=== PATIENT | female | born 1995 | race Two or more races ===

== ENCOUNTER 2024-06-23 09:27 | Observation (INO) | payer MEDICAID ==
[2024-06-23 10:17] LABS: Basophils # (auto) 0 10 ^3/uL (0-0.2); Basophils % (auto) 0.2 % (0.0-2.0); Eosinophils # (auto) 0 10 ^3/uL (0-0.8); Eosinophils % (auto) 0.4 % (0.0-7.0); Hemoglobin 9.7 g/dL (12.2-16.2); Lymphocytes % (auto) 18.2 % (10.0-50.0); Mean Corpuscular Hemoglobin 22.8 pg (28.0-32.0); Mean Corpuscular Hgb Conc. 32.2 g/dL (32.0-36.0); Monocytes # (auto) 0.5 10 ^3/uL (0-1.3); Monocytes % (auto) 4.3 % (0.0-12.0); Neutrophils # (auto) 8.3 10 ^3/uL (1.6-8.6); Neutrophils % (auto) 76.9 % (37.0-80.0); Nucleated Red Blood Cells % 0.1 %; Platelet Count (auto) 305 10^3/uL (140-450); Red Blood Cells 4.23 10^6/uL (4.0-5.20); Red Cell Distribution Width 17.7 % (11.8-14.3); White Blood Cell 10.8 10^3/uL (4.4-10.8)
[2024-06-23 10:35] LABS: Alanine Aminotransferase 17 U/L (7-40); Alkaline Phosphatase 98 U/L (46-116); Anion Gap 10 (5-15); BUN/Creatinine Ratio 12.5 (10.0-20.0); Calcium 9.3 mg/dL (8.7-10.4); Carbon Dioxide 21 mmol/L (20-31); Chloride 105 mmol/L (98-107); Glucose 75 mg/dL (74-106); Potassium 3.9 mmol/L (3.5-5.1); Sodium 136 mmol/L (136-145); Total Protein 7.3 g/dL (5.7-8.2); Uric Acid 4.1 mg/dL (3.1-7.8)
[2024-06-23 10:36] LABS: Albumin 4.3 g/dL (3.2-4.8); Bilirubin, Total 0.4 mg/dL (0.2-1.0); INR 0.92 (0.9-1.15); Partial Thromboplastin Time 23.1 SEC (24.5-34.5); Prothrombin Time 9.8 sec (9.3-11.8)
[2024-06-23 10:43] LABS: Aspartate Aminotransferase 13 U/L (13-40); Blood Urea Nitrogen 6 mg/dL (9-23)
[2024-06-23 11:26] LABS: Urine Blood Negative /uL (Negative); Urine Clarity Turbid (Clear); Urine Color Light-Orange (Yellow); Urine Mucus FEW (None Seen); Urine Protein, UAD TRACE (Negative); Urine Specific Gravity 1.027 (1.001-1.035); Urine Squamous Epithelial Cell FEW /hpf (<5); Urine Urobilinogen Normal (Negative); Urine WBC 41 /HPF (0-5)
[2024-06-23 11:27] LABS: Urine Bacteria MANY /hpf (None Seen)
[2024-06-23 11:51] LABS: Amphetamine Screen, Urine Neg (NEGATIVE); Creatinine, Urine 177.85 mg/dL (30.0-125.0); Protein, Urine 29.2 mg/dL (1-14); Urine Protein/Creatinine Ratio 0.16
[2024-06-23 11:53] LABS: Barbiturate Scree,Urine Neg (NEGATIVE); Benzodiazephine Screen, Urine Neg (NEGATIVE); Cannabinoid Screen, Urine Neg (NEGATIVE); Cocaine Screen, Urine Neg (NEGATIVE); Opiate Scree,Urine Neg (NEGATIVE); Phencyclidine Screen, Urine Neg (NEGATIVE)
--- NOTE | 2024-06-23 12:53 | DVHDS2 ---
Physician Discharge Progress N Final Diagnosis: pih ruled out Operations or Procedures: Operations or Procedures nst,edward Commentary: Commentary seen by jc Condition on Discharge: Good Disposition: Home Discharge Instructions: Diet: Regular Activity: No Restrictions, As Tolerated Medications: na Follow Up Care: Specialist: 4d Discharge Statement: "Patient was advised to return to the ER or call 911 if any headaches, dizziness, shortness of breath, chest pain, abdominal pain, bleeding, fevers, or worsening of medical condition. Patient was counseled about treatment plan, medications, possible side effects, patientverbalized understanding. All questions were answered to the best of my ability. This discharge took greater then 30 minutes in planning, reviewing documentation, counseling the patient, and discussing with other team members." Visit Coding OBGYN Date of Service: Jun 23, 2024 Billing Provider: ALICIA KAISER DO PLUGGER MAN Common Visit Codes: [id number] INP/OBS CARE (HIGH), [id number] INP/OBS CARE(HIGH) PLUGGER MAN Consultation Codes: [id number] CONSULT <40MIN PLUGGER MAN Procedure Codes: 19120-91- NON-STRESS TEST ALICIA KAISER DO Jun 23, 2024 12:53
== END 2024-06-23 12:06 | disposition home or self-care (01) ==
LOC: LDRP 09:27 → UNDOADMOB 09:27 → LDRP 09:38 → UNDODISOB 12:06
PROVIDERS: ADMIT Obstetrics & Gynecology; ATTEND Obstetrics & Gynecology
DX: Z36.89 Encounter for other specified antenatal screening (principal); Z79.899 Other long term (current) drug therapy; Z3A.28 28 weeks gestation of pregnancy; Z86.2 Personal history of diseases of the blood and blood-forming organs and certain disorders involving the immune mechanism
CPT/HCPCS: 36415; 59025; 80053; 80307; 81001; 81002; 82570; 83615; 84156; 84550; 85025; 85610; 85730; 94760; G0378

== ENCOUNTER → 2024-08-18 | Outpatient (CLI) | payer MEDICAID ==
[2024-08-18 10:23] LABS: Basophils # (auto) 0 10 ^3/uL (0-0.2); Basophils % (auto) 0.1 % (0.0-2.0); Eosinophils # (auto) 0.1 10 ^3/uL (0-0.8); Eosinophils % (auto) 0.5 % (0.0-7.0); Monocytes # (auto) 0.4 10 ^3/uL (0-1.3); Neutrophils # (auto) 8.5 10 ^3/uL (1.6-8.6)
[2024-08-18 10:24] LABS: Hematocrit 32.5 % (36.0-46.0); Hemoglobin 10.8 g/dL (12.2-16.2); Mean Corpuscular Hemoglobin 24.3 pg (28.0-32.0); Mean Corpuscular Hgb Conc. 33.2 g/dL (32.0-36.0); Mean Corpuscular Volume 73.3 fL (80.0-100.0); Monocytes % (auto) 3.6 % (0.0-12.0); Neutrophils % (auto) 77.8 % (37.0-80.0); Nucleated Red Blood Cells % 0.1 %; Platelet Count (auto) 263 10^3/uL (140-450); Red Blood Cells 4.44 10^6/uL (4.0-5.20); Red Cell Distribution Width 20.3 % (11.8-14.3)
[2024-08-20 00:07] LABS: Chlamydia Trachomatis, NAA Negative (Negative); Neisseria gonorrhoeae, NAA Negative (Negative)
== END | disposition home or self-care (01) ==
LOC: LAB 09:59
PROVIDERS: ATTEND Obstetrics & Gynecology
DX: Z34.80 Encounter for supervision of other normal pregnancy, unspecified trimester (principal); Z3A.00 Weeks of gestation of pregnancy not specified
CPT/HCPCS: 36415; 85025; 86780

== ENCOUNTER 2024-09-02 07:24 | Observation (INO) | payer MEDICAID ==
[2024-09-03] MEDS ORDERED: PREN-129 OR (20:46)
--- NOTE | 2024-09-03 21:53 | DVH ---
BIOPHYSICAL PROFILE HISTORY: PIH TECHNIQUE: Multiple transabdominal real-time grayscale sonographic images through the gravid uterus of the fetus with duplex Doppler color flow and M-mode spectral analysis FINDINGS: BIOPHYSICAL PROFILE: breathing score: 2 movement score: 2 tone score: 2 Quantitative NEGRA score: 2 (NEGRA: 11.58 Cm.) Total score: 8 The cervix is not well-visualized Single live fetus in cephalic presentation. heart rate 131 beats per minute. Grade 3 fundal placenta without previa or abruption Single nuchal cord is visualized. IMPRESSION: Biophysical profile score: 8 Single nuchal cord is visualized.
--- NOTE | 2024-09-04 03:04 | DVHDS2 ---
Physician Discharge Progress N Final Diagnosis: 39 WKS PIH RULED OUT Operations or Procedures: Operations or Procedures NST REACTIVE REVIEWED,SONO Condition on Discharge: Good Disposition: Home Discharge Instructions: Diet: See Comment Diet comment: LOW SALT INTAKE Activity: No Restrictions, As Tolerated Follow Up/Referral: KEEP CURRENT APPOINTMENT WITH DR KAISER ON 09/07. RETURN TO BIRTHPLACE FOR BLOOD PRESSURE CHECKS AND FOR MONITORING. Medications: continue taking vitamins. Follow Up Care: Specialist: 2D Discharge Statement: "Patient was advised to return to the ER or call 911 if any headaches, dizziness, shortness of breath, chest pain, abdominal pain, bleeding, fevers, or worsening of medical condition. Patient was counseled about treatment plan, medications, possible side effects, patientverbalized understanding. All questions were answered to the best of my ability. This discharge took greater then 30 minutes in planning, reviewing do cumentation, counseling the patient, and discussing with other team members." Visit Coding OBGYN Date of Service: September 03, 2024 Billing Provider: ALICIA KAISER DO METAL FORGER'S ASSISTANT Common Visit Codes: [id number] OBS CARE (HIGH) METAL FORGER'S ASSISTANT Procedure Codes: 75856-52- NON-STRESS TEST ALICIA KAISER DO September 04, 2024 03:04
== END 2024-09-03 21:57 | disposition home or self-care (01) ==
LOC: LDRP 09-03 20:01
PROVIDERS: ADMIT Obstetrics & Gynecology; ATTEND Obstetrics & Gynecology
DX: O69.81X0 Labor and delivery complicated by cord around neck, without compression, not applicable or unspecified (principal); O13.3 Gestational [pregnancy-induced] hypertension without significant proteinuria, third trimester; Z98.890 Other specified postprocedural states; Z79.899 Other long term (current) drug therapy; Z3A.39 39 weeks gestation of pregnancy
CPT/HCPCS: 59025; 76819; 81002; 94760; G0378

== ENCOUNTER 2024-09-05 15:55 | Inpatient (IN) | payer MEDICAID ==
[~2024-09-05] VITALS: Ht 162.6 cm; Wt 97.5 kg
[~2024-09-05 15:55] MED LIST: PREN-129 OR
[2024-09-05] MEDS ORDERED: TRANEXAMIC ACID 1,000 mg/10ml INJ VIAL IV ONE (15:56)
[2024-09-05 17:22] LABS: Urine Bacteria FEW /hpf (None Seen); Urine Blood TRACE /uL (Negative); Urine Clarity Turbid (Clear); Urine Color Yellow (Yellow); Urine Mucus FEW (None Seen); Urine Protein, UAD TRACE (Negative); Urine Squamous Epithelial Cell FEW /hpf (<5); Urine Urobilinogen Normal (Negative); Urine WBC 4 /HPF (0-5)
[2024-09-05 17:43] LABS: Vaginal Bacteria Few; Vaginal Clue Cells None Seen; Vaginal Epithelial Cells Few; Vaginal Trichomonas Not Present
[2024-09-05 17:54] LABS: Fern Testing Positive
--- NOTE | 2024-09-05 18:09 | DVHHP2 ---
OB CC & HPI Date Date of Admission: September 05, 2024 Patient Identification: : 2 Para: 0 EDC: September 09, 2024 EGA: 39.3 Chief Complaints: Reason for admission: rupture of membranes History of Present Complaints Term IUP 39.3 wk, dated by 21 wk US (Late entry to care) - c/o leaking clear fluid since yesterday - BOTH Fern test and amnisure tests POSITIVE for PROM - GBS negative Minimal contractions, not in labor has been uncomplicated other than maternal obesity, and mild anemia Past Medical History Cardiac: No pertinent Hx Pulmonary: No pertinent Hx Central Nervous System: No pertinent Hx GI: No pertinent Hx Hemotology/Oncology: Anemia NOS Hepatobiliary: No pertinent Hx Psychiatric: No pertinent Hx Musculoskeletal: No pertinent Hx Rheumotologic: No pertinent Hx Infectious Disease: No peritnent Hx ENT: No pertinent Hx Renal/: No pertinent Hx Endocrine: No pertinent Hx Dermatology: No pertinent Hx Past Surgical History: No pertinent Hx OB History OB History Care: Good Care Ultrasounds: Normal mid trimester US Obstetrical Complications: None Medical Complications: None Home Meds Reported Medications Vit W/ Ferrous Fumara () Tab, 1 OR, TAB 09/03/24 Family & Social History Family/Social History Past Family/Social History: Negative FHx Blood Type: O+ Rubella: immune RPR/VDRL: Negative GBS Status: Negative HBsAG: Negative Review of Systems Constitutional: No symptom reported Ears, Nose, & Throat: No symptom reported Eyes: No symptom reported Pulmonary/Respiratory: No symptom reported Cardiovascular: No symptom reported Gastrointestinal: No symptom reported Genitourinary: No symptom reported Musculoskeletal: No symptom reported Skin: No symptom reported Psychiatric: No symptom reported Endocrine: No symptom reported Hemotologic/Lymphatic: No symptom reported OB Admission Exam Physical Exam HEENT: NCAT Heart: Rhythm Normal Lungs: Clear Abdomen: Gravid Extremities: Normal Reflexes: Normal Pelvic Exam: RN exam Cervical Dilatation: 1cm Effacement: Other (20) Station: -3 Membranes: Ruptured Amniotic Fluid: Clear Heart Rate: 130's Accelerations: Accelerations Present Decelerations: No Decelerations Short Term Variability: Present Clinical Appeals Specialist Variability: Average (6-25) Contractions on Admission: >10 Minutes Apart Intensity: Mild OB Plan Plan Admitting Diagnosis: 28y G2Po, Term IUP 39.3 wk with PROM GBS negative Categ 1 FHR tracing Morbid Obesity BMI= 37 mild Anemia Plan: Induction (EFW 8lb 1oz by US) Induction Methd: Misoprostol protocol Other Plan: Admit for indicated delivery Induction w/ Cytotec PO per protocol Informed consent obtained for treatment and delivery Visit Coding OBGYN Date of Service: September 05, 2024 Billing Provider: ALESSIO MCKNIGHT DO LABEL DRIER Common Visit Codes: [id number] INP/OBS CARE (HIGH) ALESSIO MCKNIGHT DO September 05, 2024 18:09
[2024-09-05] MEDS ORDERED: NALBUPHINE HCL 10 MG/1ml INJECTION IM PRN (19:00)
[2024-09-05] MEDS ORDERED: LACTATED RINGER'S 1,000 ML IV SCH (19:00)
--- NOTE | 2024-09-05 19:04 | DVH ---
LIMITED OB ULTRASOUND > 14 WKS: HISTORY: lie and EFW TECHNIQUE: Multiple real-time grayscale images of the gravid uterus with duplex Doppler color flow an d M-mode spectral analysis. TRANSDUCER: Transabdominal COMPARISON: Biophysical profile 09/03/2024 FINDINGS: IUP single live fetus at 39 weeks 1 day based on composite averages of the BPD, head circumference, a bdominal circumference and femur length. Biparietal diameter is 9.6 cm, head circumference is 34.4 c m, abdominal circumference is 35.2 cm, and femur length is 7.5 cm. Estimated weight 3668 grams heart rate 134 beats per minute NEGRA 6.0 cm (previously 11.6 cm). MVP is 4.1 cm. Cervix appears unremarkable. Cephalic Presentation Right lateral placenta without previa or abruption. A nuchal cord is again seen. IMPRESSION: 1. IUP single live fetus at 39 weeks 1 day AUA corresponding to an [place] of 09/11/2024. 2. Redemonstration of a nuchal cord. 3. NEGRA has decreased from prior and is borderline low (6.0 cm). MVP is normal.
[2024-09-05 19:45] LABS: Basophils # (auto) 0 10 ^3/uL (0-0.2); Eosinophils # (auto) 0 10 ^3/uL (0-0.8); Lymphocytes # (auto) 2.1 10 ^3/uL (0.4-5.4); Mean Corpuscular Volume 73.6 fL (80.0-100.0); Monocytes # (auto) 0.6 10 ^3/uL (0-1.3)
[2024-09-05 19:46] LABS: Basophils % (auto) 0.1 % (0.0-2.0); Eosinophils % (auto) 0.3 % (0.0-7.0); Hematocrit 32.8 % (36.0-46.0); Hemoglobin 10.6 g/dL (12.2-16.2); Lymphocytes % (auto) 19.9 % (10.0-50.0); Mean Corpuscular Hemoglobin 23.9 pg (28.0-32.0); Mean Corpuscular Hgb Conc. 32.5 g/dL (32.0-36.0); Monocytes % (auto) 5.6 % (0.0-12.0); Neutrophils # (auto) 7.8 10 ^3/uL (1.6-8.6); Neutrophils % (auto) 74.1 % (37.0-80.0); Nucleated Red Blood Cells % 0.2 %; Platelet Count (auto) 242 10^3/uL (140-450); Red Blood Cells 4.45 10^6/uL (4.0-5.20); Red Cell Distribution Width 20.1 % (11.8-14.3); White Blood Cell 10.5 10^3/uL (4.4-10.8)
[2024-09-05 20:00] LABS: INR 0.91 (0.9-1.15); Partial Thromboplastin Time 23.2 SEC (24.5-34.5); Prothrombin Time 9.7 sec (9.3-11.8)
[2024-09-05 20:02] LABS: Alanine Aminotransferase 10 U/L (7-40); Albumin 3.9 g/dL (3.2-4.8); Alkaline Phosphatase 108 U/L (46-116); Anion Gap 11 (5-15); Aspartate Aminotransferase 14 U/L (13-40); BUN/Creatinine Ratio 13.6 (10.0-20.0); Chloride 106 mmol/L (98-107); Glucose 90 mg/dL (74-106); Potassium 3.6 mmol/L (3.5-5.1); Sodium 137 mmol/L (136-145); Total Protein 6.7 g/dL (5.7-8.2)
[2024-09-05 20:12] LABS: Bilirubin, Total 0.3 mg/dL (0.2-1.0); Blood Urea Nitrogen 8 mg/dL (9-23); Calcium 8.2 mg/dL (8.7-10.4); Carbon Dioxide 20 mmol/L (20-31)
[2024-09-05] MEDS: miSOPROStol 50 MCG per PRE-CUT 1/2 TAB PO PRN (20:34)
[2024-09-05 20:48] LABS: Amphetamine Screen, Urine Neg (NEGATIVE); Barbiturate Scree,Urine Neg (NEGATIVE); Benzodiazephine Screen, Urine Neg (NEGATIVE); Cannabinoid Screen, Urine Neg (NEGATIVE); Cocaine Screen, Urine Neg (NEGATIVE); Opiate Scree,Urine Neg (NEGATIVE); Phencyclidine Screen, Urine Neg (NEGATIVE)
[2024-09-05] MEDS: ceFAZolin 2 GM/D5W50ml 50 ML IV ONE (22:48)
[2024-09-05] MEDS: DERMOPLAST 60ML BOTTLE TOP PRN (22:49)
[2024-09-05] MEDS: WITCH HAZEL-GLYCERIN PAD TOP PRN (22:49)
[2024-09-05] MEDS: PHISODERM TOP SOLN 240ML BTL TOP PRN (22:49)
[2024-09-06] VITALS (11 sets, daily range): BP systolic 110–138; BP diastolic 61–86; PULSE 70–110; RESP 16–18; TEMP 97.7–98.1; O2SAT 96–100
[2024-09-06] MEDS: NALBUPHINE HCL 10 MG/1ml INJECTION IV PRN (00:47)
[2024-09-06] MEDS ORDERED: CALCIUM CARB 500 MG CHEW TAB PO PRN (01:30)
[2024-09-06] MEDS: ONDANSETRON HCL 4 MG/2 ML VIAL IV PRN (03:13)
--- NOTE | 2024-09-06 03:13 | DVHPN2 ---
OB Labor Progress Note Date and Time Seen Date Seen: September 06, 2024 Time Seen: 03:10 Subjective Patient reports: No new complaints Objective Vital Signs Afeb VS Stable Monitoring Method Monitoring Method: External Heart Rate Heart Rate Baseline: 130 Heart Rate Variability: Moderate Presence of FHR Accelerations: Yes Presence of FHR Decelerations: No Contractions Contractions Intensity: Moderate Contractions Resting Tone: Relaxed Membranes Membranes: Ruptured Vaginal Exam Vag Exam Deferred: Yes Medications Medications - Pitocin: No Lab Results Lab Results Vital Signs Date Time Temp Pulse Resp B/P (MAP) Pulse Ox O2 Delivery O2 Flow Rate FiO2 09/06/24 00:47 84 16 122/70 Current Medications Medications (Trade) Dose Ordered Sig/Amie Start Time Stop Time Status Last Admin Dose Admin Lactated Ringer's 1,000 ml @ 125 mls/hr Q8H 09/05/24 19:00 Nalbuphine HCl (Nubain) 10 mg Q4HP PRN 09/05/24 19:00 Nalbuphine HCl (Nubain) 10 mg Q4HP PRN 09/05/24 19:00 09/06/24 00:47 10 MG Witch Gisel (Tucks) 1 pad PRN PRN 09/05/24 19:00 09/05/24 22:49 1 PAD Sodium Lauryl Sulfate (Phisoderm) 240 ml PRN PRN 09/05/24 19:00 09/05/24 22:49 240 ML Benzocaine (Dermoplast) 1 applic PRN PRN 09/05/24 19:00 09/05/24 22:49 1 APPLIC Misoprostol (Cytotec) 50 mcg Q4HPRN PRN 09/05/24 19:00 09/06/24 01:12 50 MCG Lidocaine HCl (Xylocaine) 20 ml ONCE PRN 09/05/24 19:00 Cefazolin Sodium/ Dextrose 50 ml @ 50 mls/hr ONCE ONCE 09/05/24 22:15 09/05/24 23:14 DC 09/05/24 22:48 50 MLS/HR Cefazolin Sodium 50 ml @ 100 mls/hr Q8HR 09/06/24 06:00 Ondansetron HCl (Zofran) 4 mg Q4HPRN PRN 09/06/24 01:30 Calcium Carbonate (Tums) 500 mg QIDPRN PRN 09/06/24 01:30 Laboratory Tests Test 09/05/24 19:22 09/05/24 17:00 Range/Units White Blood Count 10.5 4.4-10.8 10^3/uL Red Blood Count 4.45 4.0-5.20 10^6/uL Hemoglobin 10.6 L 12.2-16.2 g/dL Hematocrit 32.8 L 36.0-46.0 % Mean Corpuscular Volume 73.6 L 80.0-100.0 fL Mean Corpuscular Hemoglobin 23.9 L 28.0-32.0 pg Mean Corpuscular Hemoglobin Concent 32.5 32.0-36.0 g/dL Red Cell Distribution Width 20.1 H 11.8-14.3 % Platelet Count 242 140-450 10^3/uL Mean Platelet Volume 9.5 6.9-10.8 fL Neutrophils (%) (Auto) 74.1 37.0-80.0 % Lymphocytes (%) (Auto) 19.9 10.0-50.0 % Monocytes (%) (Auto) 5.6 0.0-12.0 % Eosinophils (%) (Auto) 0.3 0.0-7.0 % Basophils (%) (Auto) 0.1 0.0-2.0 % Neutrophils # (Auto) 7.8 1.6-8.6 10 ^3/uL Lymphocytes # (Auto) 2.1 0.4-5.4 10 ^3/uL Monocytes # (Auto) 0.6 0-1.3 10 ^3/uL Eosinophils # (Auto) 0 0-0.8 10 ^3/uL Basophils # (Auto) 0 0-0.2 10 ^3/uL Nucleated Red Blood Cells 0.2 % Prothrombin Time 9.7 9.3-11.8 sec Prothrombin Time INR 0.91 0.9-1.15 Activated Partial Thromboplast Time 23.2 L 24.5-34.5 SEC Sodium Level 137 136-145 mmol/L Potassium Level 3.6 3.5-5.1 mmol/L Chloride Level 106 98-107 mmol/L Carbon Dioxide Level 20 20-31 mmol/L Anion Gap 11 5-15 Blood Urea Nitrogen 8 L 9-23 mg/dL Creatinine 0.59 0.550-1.02 mg/dL Glomerular Filtration Rate Calc 126 >90 mL/min BUN/Creatinine Ratio 13.6 10.0-20.0 Serum Glucose 90 74-106 mg/dL Calcium Level 8.2 L 8.7-10.4 mg/dL Total Bilirubin 0.3 0.2-1.0 mg/dL Aspartate Amino Transferase (AST) 14 13-40 U/L Alanine Aminotransferase (ALT) 10 7-40 U/L Alkaline Phosphatase 108 46-116 U/L Total Protein 6.7 5.7-8.2 g/dL Albumin 3.9 3.2-4.8 g/dL Treponema pallidum Antibody Non-reactive Negative Hepatitis C Antibody Negative Negative Urine Color Yellow Yellow Urine Clarity Turbid H Clear Urine pH 6.0 5.0-9.0 Urine Specific [place] 1.030 1.001-1.035 Urine Protein Trace H Negative Urine Ketones 1+ H Negative Urine Blood Trace H Negative /uL Urine Nitrite Negative Negative Urine Bilirubin Negative Negative Urine Urobilinogen Normal Negative mg/dL Urine Leukocyte Esterase Negative Negative /uL Urine RBC 6 0 - 4 /hpf Urine Microscopic WBC 4 0-5 /HPF Urine Squamous Epithelial Cells Few <5 /hpf Urine Bacteria Few H None Seen /hpf Urine Mucus Few None Seen Urine Glucose Normal Normal mg/dL Amniotic Fluid Ferning Test Positive Placental [id number] Positive Vaginal WBC (Wet Prep) Few Vaginal RBC (Wet Prep) Rare Vaginal Epithelial Cells (Wet Prep) Few Vaginal Bacteria (Wet Prep) Few Vaginal Trichomonas (Wet Prep) Not present Vaginal Yeast (Wet Prep) None seen Vaginal Clue Cells (Wet Prep) None seen Urine Opiates Screen Neg NEGATIVE Urine Fentanyl Screen Neg NEGATIVE Urine Barbiturates Screen Neg NEGATIVE Urine Phencyclidine Screen Neg NEGATIVE Urine Amphetamines Screen Neg NEGATIVE Urine Benzodiazepines Screen Neg NEGATIVE Urine Cocaine Screen Neg NEGATIVE Urine Cannabinoids Screen Neg NEGATIVE Assessment Assessment 28y G2Po IUP 39.3 wk SROM, GBS neg Plan Plan Continue labor mgmt Cytotec PO per protocol status reassuring Plan discussed with: Patient Visit Coding OBGYN Date of Service: September 06, 2024 Billing Provider: ALESSIO MCKNIGHT DO SHIRT FINISHER Common Visit Codes: [id number] INP/OBS CARE(HIGH) ALESSIO MCKNIGHT DO September 06, 2024 03:13
[2024-09-06] MEDS: LACT. RINGERS/OXYTOCIN 20UNITS 1,000 ML IV ONE (04:44)
[2024-09-06] MEDS: METHYLERGONOVINE MALEATE 0.2 MG/ML AMP IM ONE ×2 (05:15→06:45)
--- NOTE | 2024-09-06 05:30 | LDN2 ---
Labor and Delivery Note Date 09/06/24 Age 28 2 Para 1 AB 1 EGA 39.4 Diagnosis Term , PROM Induction of labor w/ Retained placental tissue Vaginal Delivery: VTX Vacuum Assisted: No Placenta: Spontaneous Sex: Female Weight 7lb1oz Apgars 8/9 Amniotic Fluid: Clear Anesthesia None Episiotomy: No Repaired with Right vaginal wall laceration 2nd degree, left 2nd degree left vaginal laceration Both repaired w/ 2-0 chromic EBL 400 mL Labs Laboratory Tests 05/19/24 09:46: Hepatitis B Surface Antigen Negative, HIV (1&2) Antibody Negative, Rubella Antibody Positive Blood Bank 09/05/24 19:22: Blood Type O POSITIVE Complications Suspected retained placental tissue Comments/Significant Med [place] Placenta somewhat difficult to deliver. Pitocin used to aid in spontaneous expulsion of placenta. Once at introitus placenta appeared more adherent and proved difficult to deliver. Manual sweep of uterus palpated possible tissue still in uterus and large blood clots Bleeding not resolved with uterotonics: PItocin and Methergine given Patient consented for Pelvic Exam under Anesthesia, Uterine Curettage, possible placement of Fide system R/B/A discussed w/ patient and informed consent obtained 2nd IV line started. Visit Coding OBGYN Date of Service: September 06, 2024 Billing Provider: ALESSIO MCKNIGHT DO BUSINESS OFFICE REPRESENTATIVE Common Visit Codes: PROCEDURE ONLY BUSINESS OFFICE REPRESENTATIVE Procedure Codes: [id number] OB CARE,VAG DELIVERY ALESSIO MCKNIGHT DO September 06, 2024 05:30
[2024-09-06] MEDS ORDERED: fentaNYL CITRATE 100 MCG/2 ML VL ONE ×2 (05:47→06:55)
[2024-09-06] MEDS ORDERED: MIDAZOLAM HCL 2MG/2ML 2ml VIAL (1mg/ml) ONE (05:47)
[2024-09-06] MEDS ORDERED: LIDOCAINE 2% (LOCAL ANESTH.) PF 5ml SDV ONE (05:48)
[2024-09-06] MEDS ORDERED: ONDANSETRON HCL 4 MG/2 ML VIAL ONE (05:48)
[2024-09-06] MEDS ORDERED: GLYCOPYRROLATE 0.2 MG/ML 1ML VIAL ONE (05:48)
[2024-09-06] MEDS ORDERED: PROPOFOL 10 MG/ML 20 ML IV ONE (05:48)
[2024-09-06] MEDS: ceFAZolin 1GM/50ML 50 ML IV SCH (06:00)
[2024-09-06] MEDS ORDERED: HYDROmorphone HCL 2 MG/ML VL/or syr ONE (06:15)
[2024-09-06] MEDS ORDERED: SUGAMMADEX 200mg/2ml Vial (100MG/ML) IV ONE (06:25)
[2024-09-06] MEDS ORDERED: OXYTOCIN 10UNIT/ML 1ML VIAL ONE (06:45)
[2024-09-06] MEDS ORDERED: HYDROmorphone HCL 2 MG/ML VL/or syr IV PRN (07:15)
[2024-09-06] MEDS: ONDANSETRON HCL 4 MG/2 ML VIAL IV ONE (07:15)
--- NOTE | 2024-09-06 07:22 | DVHOP ---
DATE OF SURGERY: 09/06/2024 DIAGNOSES: * hemorrhage. * Retained products of conception. * Second-degree vaginal and labial lacerations. FINAL DIAGNOSES: * hemorrhage. * Retained products of conception. * Second-degree vaginal and labial lacerations. PROCEDURES PERFORMED: * Pelvic exam under anesthesia. * Sharp uterine curettage. * Suction curettage of the uterus. * Repair of vaginal and labial lacerations. SURGEON: Martir Love DO RESEARCH MECHANIC: measurement technician TYPE OF ANESTHESIA: General endotracheal. ANESTHESIOLOGIST: Yani Liang MD DESCRIPTION OF FINDINGS: A subinvoluted uterus. Cervix open. There was a large blood clot that was manually removed on uterine exploration. On sharp curettage and D and C, minimal products of conception within the uterus. Good uterine tone. No atony. No cervical or high vaginal lacerations. A right deep lateral vagina wall laceration and bilateral labial skin lacerations. Rectal exam normal before and after procedure. TECHNICAL PROCEDURE: After informed consent was obtained, the patient was taken to the operating room where she underwent smooth induction with general anesthesia. She was placed in the dorsal lithotomy position in Victoriano strips. The vagina, perineum, and abdomen were sterilely prepped and draped in usual fashion. A pelvic exam was then performed under anesthesia with the above-noted findings. A bimanual exam was performed. The uterus was explored manually. There were large clots and tissue that were removed manually. Next, a Serafin uterine curette was gently advanced into the uterine fundus. The instrument was gently passed and a gritty texture was noted of the uterine cavity. The instrument was removed. Next, a weighted speculum was placed into the patient's vagina. The anterior lip of the cervix was grasped with a ring forcep. Due to ongoing bleeding, a decision was made to perform a suction curettage of the uterus using a #12 curved suction cannula. This device was inserted through the cervix into the uterine cavity up to the fundus. The device suction was activated. The instrument was gently rotated and the uterus evacuated of further blood clots and tissue debris. This was removed and then another bimanual exam was performed. Uterine tone was firm with minimal bleeding noted at this point. I then proceeded to inspect for cervical and vaginal lacerations. The vaginal lacerations were found as described above. These were repaired with 2-0 Vicryl in continuous running locking fashion with good tissue approximation and hemostasis obtained. On the right labia majora, there was a laceration that was repaired with 2-0 chromic. There was still some oozing and a small piece of Surgicel SNoW was placed over this for added hemostasis. There was a small left first-degree vaginal laceration that was repaired with an interrupted suture of 2-0 chromic. The patient was then observed. There was no more bleeding. The uterus was firm and the lacerations were completely closed. The patient was then taken out of lithotomy position, awakened, and taken to recovery room in stable condition. INTRAOPERATIVE COMPLICATIONS: None. COUNTS: Sponge, laps, and needle counts were correct x2. MEDICATIONS: The patient received IV Pitocin and she also received 2 grams of Ancef prior to commencement of surgery. SPECIMENS: Products of conception. DO JENNI Fermin/PARMJIT TID: [id number] RECEIPT: [id number] MTD
[2024-09-06] MEDS: LACT. RINGERS/OXYTOCIN 20UNITS 500 ML IV ONE ×2 (08:05)
[2024-09-06] MEDS: LIDOCAINE 2%HCL (LOCAL ANESTH.) INJ 20ML MDV IJ PRN (08:06)
[2024-09-06] MEDS: IBUPROFEN 800 MG TAB PO SCH (11:40)
[2024-09-06] MEDS: ACETAMINOPHEN 325 MG TAB PO PRN (20:11)
[2024-09-07] VITALS (8 sets, daily range): BP systolic 105–125; BP diastolic 58–68; PULSE 90–117; RESP 16–68; TEMP 97.6–98.1; O2SAT 98–100
--- NOTE | 2024-09-07 02:13 | DVHDS2 ---
Physician Discharge Progress N Final Diagnosis: Term IUP, delivered Secondary Diagnosis: Retained placental tissue, hemorrhage Operations or Procedures: Operations or Procedures D&C, uterine curettage, repair 2nd deg lac Commentary: Commentary Stable in the last 24 hr, meeting all milestones Condition on Discharge: Stable Disposition: Home Discharge Instructions: Diet: Regular Activity: Light activity Activity comment: Pelvic rest x 6 wk Follow Up/Referral: [address] Pierson Medications: Ibuprofen PRN pain/ cramps, Iron BID Follow Up Care: Discharge Statement: "Patient was advised to return to the ER or call 911 if any headaches, dizziness, shortness of breath, chest pain, abdominal pain, bleeding, fevers, or worsening of medical condition. Patient was counseled about treatment plan, medications, possible side effects, patientverbalized understanding. All questions were answered to the best of my ability. This discharge took greater then 30 minutes in planning, reviewing documentation, counseling the patient, and discussing with other team members." Visit Coding OBGYN Date of Service: September 07, 2024 Billing Provider: ALESSIO MCKNIGHT DO DIRECTOR OF PLANT OPERATIONS Common Visit Codes: [id number] DISCH DAY <30MIN ALESSIO MCKNIGHT DO September 07, 2024 02:13
[2024-09-07] MEDS ORDERED: FERR325T24 PO (02:14)
[2024-09-07] MEDS ORDERED: IBUP-1455 PO (02:14)
[2024-09-07 04:27] LABS: Basophils # (auto) 0 10 ^3/uL (0-0.2); Basophils % (auto) 0.2 % (0.0-2.0); Eosinophils # (auto) 0.1 10 ^3/uL (0-0.8); Eosinophils % (auto) 0.4 % (0.0-7.0); Hematocrit 23.5 % (36.0-46.0); Lymphocytes # (auto) 3.3 10 ^3/uL (0.4-5.4); Lymphocytes % (auto) 17.7 % (10.0-50.0); Mean Corpuscular Hemoglobin 23.9 pg (28.0-32.0); Mean Corpuscular Hgb Conc. 29.5 g/dL (32.0-36.0); Mean Corpuscular Volume 81.1 fL (80.0-100.0); Monocytes # (auto) 1.1 10 ^3/uL (0-1.3); Monocytes % (auto) 6.1 % (0.0-12.0); Neutrophils % (auto) 75.6 % (37.0-80.0); Nucleated Red Blood Cells % 0.2 %; Platelet Count (auto) 228 10^3/uL (140-450); Red Blood Cells 2.89 10^6/uL (4.0-5.20); Red Cell Distribution Width 20.1 % (11.8-14.3); White Blood Cell 18.5 10^3/uL (4.4-10.8)
[2024-09-07 04:30] LABS: Hemoglobin 6.9 g/dL (12.2-16.2)
[2024-09-07 17:24] LABS: Basophils # (auto) 0 10 ^3/uL (0-0.2); Basophils % (auto) 0.1 % (0.0-2.0); Eosinophils # (auto) 0 10 ^3/uL (0-0.8); Hematocrit 23.3 % (36.0-46.0); Hemoglobin 7.5 g/dL (12.2-16.2); Lymphocytes # (auto) 2.9 10 ^3/uL (0.4-5.4); Mean Corpuscular Hemoglobin 24.6 pg (28.0-32.0); Mean Corpuscular Hgb Conc. 32.3 g/dL (32.0-36.0); Monocytes # (auto) 0.7 10 ^3/uL (0-1.3)
[2024-09-07 17:26] LABS: Eosinophils % (auto) 0.1 % (0.0-7.0); Lymphocytes % (auto) 20.5 % (10.0-50.0); Mean Corpuscular Volume 76.1 fL (80.0-100.0); Monocytes % (auto) 4.9 % (0.0-12.0); Neutrophils # (auto) 10.6 10 ^3/uL (1.6-8.6); Neutrophils % (auto) 74.4 % (37.0-80.0); Nucleated Red Blood Cells % 0.2 %; Platelet Count (auto) 184 10^3/uL (140-450); Red Blood Cells 3.06 10^6/uL (4.0-5.20); White Blood Cell 14.3 10^3/uL (4.4-10.8)
[2024-09-07 17:27] LABS: Red Cell Distribution Width 20.4 % (11.8-14.3)
[2024-09-07] MEDS ORDERED: PREN-129 PO (19:12)
[2024-09-07] MEDS ORDERED: DOCU-94 PO (19:12)
--- NOTE | 2024-09-07 19:18 | DVHPN2 ---
Progress Note Date Seen: September 07, 2024 Subjective S: Pt denies lightheaded/dizziness and feels better after blood transfusion. bleeding is less, eating food without issues, pain well controlled with oral medications, no concerns with urinating, passing flatus, no BM yet, ambulating well, and formula vital signs Vital Sign Date Time Temp Pulse Resp B/P (MAP) Pulse Ox O2 Delivery O2 Flow Rate FiO2 09/07/24 18:47 Room Air 09/07/24 18:38 98.0 93 68 125/66 (85) 98 98.0 09/06/24 07:07 7.0 100 Total Intake and Output 09/06/24 09/06/24 09/07/24 15:00 23:00 07:00 Output Total 1500 ml Balance -1500 ml medications Current Medications Medications Dose Ordered Sig/Amie Route Start Time Stop Time Status Last Admin Dose Admin Lactated Ringer's 1,000 ml @ 125 mls/hr Q8H IV 09/05/24 19:00 Cancel Nalbuphine HCl 10 mg Q4HP PRN IM 09/05/24 19:00 Cancel Witch Gisel 1 pad PRN PRN TOP 09/05/24 19:00 09/05/24 22:49 1 PAD Sodium Lauryl Sulfate 240 ml PRN PRN TOP 09/05/24 19:00 09/05/24 22:49 240 ML Benzocaine 1 applic PRN PRN TOP 09/05/24 19:00 09/05/24 22:49 1 APPLIC Ondansetron HCl 4 mg Q4HPRN PRN IV 09/06/24 01:30 09/06/24 03:13 4 MG Calcium Carbonate 500 mg QIDPRN PRN PO 09/06/24 01:30 Acetaminophen 650 mg Q4HP PRN PO 09/06/24 06:45 09/06/24 20:11 650 MG Ibuprofen 800 mg Q6HR PO 09/06/24 12:00 09/07/24 18:25 800 MG laboratory and microbiology Laboratory Tests 09/07/24 16:45 09/05/24 19:22 Test 09/05/24 19:22 Range/Units Serum Glucose 90 74-106 mg/dL Objective O: VSS Chest: heart sounds normal and lung sounds clear bilaterally Abd: soft, non-tender, fundus at U/firm/midline, active bowel sounds, no rebound or guarding Perineum: sutures intact, edges well approximated, no erythema/edema noted Ext: Non-tender, No edema, 2+ BLE DTRs Lochia: minimal See lab results Assessment/Plan A: 28yo now PPD#1 s/p Anemia s/p blood transfusion Rh+ Rubella Immune Breast and formula P: D/C home today Rx sent to pharmacy precautions and preeclampsia warning signs reviewed F/U with [facility] OB office in 2 weeks Plan discussed with: Patient Visit Coding OBGYN Date of Service: September 07, 2024 Billing Provider: JAEL NIEVES CNM ADAPTIVE PHYSICAL EDUCATOR Common Visit Codes: [id number] INP/OBS CARE(HIGH) JAEL NIEVES CNM September 07, 2024 19:18
== END 2024-09-07 23:08 | disposition home or self-care (01) | DRG 541 ==
LOC: LDRP 15:55 → OBSVTOIN 18:47
PROVIDERS: ADMIT Obstetrics & Gynecology; ATTEND Obstetrics & Gynecology
PROC: 10E0XZZ Delivery of Products of Conception, External Approach (ICD-10-PCS; 2024-09-06)
PROC: 0UQMXZZ Repair Vulva, External Approach (ICD-10-PCS; 2024-09-06)
PROC: 10D17ZZ Extraction of Products of Conception, Retained, Via Natural or Artificial Opening (ICD-10-PCS; principal; 2024-09-06 06:03)
PROC: 30233N1 Transfusion of Nonautologous Red Blood Cells into Peripheral Vein, Percutaneous Approach (ICD-10-PCS; 2024-09-07)
DX: O42.12 Full-term premature rupture of membranes, onset of labor more than 24 hours following rupture (principal); Z37.0 Single live birth; O72.2 Delayed and secondary postpartum hemorrhage; O99.214 Obesity complicating childbirth; E66.01 Morbid (severe) obesity due to excess calories; Z3A.39 39 weeks gestation of pregnancy; O99.02 Anemia complicating childbirth; O70.0 First degree perineal laceration during delivery
CPT/HCPCS: 36415; 36430; 59025; 59409; 76805; 80053; 80307; 81001; 81002; 84112; 85025; 85610; 85730; 86780; 86803; 86850; 86900; 86901; 86920; 87210; 94760; 94762; 96360; 96361; 96365; 96366; 96372; 96374; G0378; J2003; J2250; J2405; J2590; J2704